=== PATIENT | male | born 1990 | race African-American/Black ===

== ENCOUNTER 2020-03-26 09:40 | Observation (INO) | payer OTHER ==
[2020-03-26 10:09] VITALS: BMI 22.5
--- NOTE | 2020-03-26 10:12 | PDOC ---
Documentation entered by Flash Renee SCRIBE, acting as scribe for Marcelino Eckert MD. Marcelino Ecekrt MD: This documentation has been prepared by the Thelma roberts Xhesika, SCRIBE, under my direction and personally reviewed by me in its entirety. I confirm that the documentation accurately reflects all work, treatment, procedures, and medical decision making performed by me. History of Present Illness - General Chief Complaint: Seizure Stated Complaint: SEIZURES Time Seen by Provider: 03/26/20 09:55 History Source: Patient Exam Limitations: No Limitations - History of Present Illness Initial Comments: 03/26/20 09:55 The patient is a 29 year old male with a significant PMH of chronic headaches and COVID infection (october 2019) who presents to the emergency department for L sided posterior head pain and headache s/p seizure yesterday. Per girlfriend at bedside, the pt had a seizure yesterday at 2:30PM witnessed by the girlfriend. G irlfriend states the pt fell on the ground and hit his head on the floor. Pt was then taken to [facility] ED, where they did an EKG, was told that "he had an episode where his heart stopped" and was dxc home. Girlfriend states, the pt has been stuttering, having blurry vision and was jerking in his sleep last night, prompting the arrival to the ED. Pt states he smokes marijuana, but did not smoke yesterday prior to his seizure. Girlfriend states the pt has been sleepy since he woke up, unlike yesterday. Allergies: NKDA Past History - Medical History Allergies/Adverse Reactions: Allergies Allergy/AdvReac Type Severity Reaction Status Date / Time No Known Allergies Allergy Verified 03/26/20 10:09 Home Medications: Ambulatory Orders NK [No Known Home Medication] 03/26/20 Review of Systems - Review of Systems Able to Perform ROS?: Yes Comments:: 03/26/20 10:22 CONSTITUTIONAL: No fever, no chills, no fatigue. +L sided posterior head pain. EYES: +Blurry vision ENT: No ear pain, no sore throat CARDIOVASCULAR: No chest pain, no palpitations RESPIRATORY: No cough, no SOB GI: No abdominal pain, no nausea, no vomiting, no constipation, no diarrhea GENITOURINARY: No dysuria, no frequency, no hematuria MUSKULOSKELETAL: No backpain, no joint pain, no myalgias SKIN: No rash NEURO: + headache. +stuttering. *Physical Exam - Physical Exam 03/26/20 11:29 EXAMINATION CONSTITUTIONAL: Somnolent, easily arousable, follows commands, well-nourished,; in no apparent distress HEAD: Normocephalic; atraumatic EYES: PERRL; EOM intact; No meningismus; conjunctiva pink; ENMT: External appears normal; normal oropharynx NECK: Supple; non-tender; no cervical lymphadenopathy; No evidence of meningismus CARD: Normal S1, S2; no murmurs, rubs, or gallops RESP: Normal chest excursion with respiration; breath sounds clear and equal bilaterally; no wheezes, rhonchi, or rales ABD: Soft, non-distended; non-tender; no palpable organomegaly, no palpable hernias EXT: Normal ROM in all four extremities; non-tender to palpation; distal pulses intact SKIN: Warm, dry, no rash NEURO: Patient is awake, alert, oriented x3; cranial nerves II through XII are grossly intact; motor is five 5 x 4; no pronation drift; patient is noted to be stuttering; ED Treatment Course - LABORATORY CBC & Chemistry Diagram: 03/26/20 09:45 03/26/20 09:45 Medical Decision Making - Medical Decision Making 03/26/20 11:32 29-year-old male presents to the ER with stuttering, blurry vision, and somnolence after a witnessed, likely seizure like activity 18 hours previously for which she was evaluated at [facility]. As per [facility] ER attending, patient refused CT of head and insisted on leaving the hospital. In the ER, patient was noted to be somnolent, following commands, stuttering without focal neuro deficits. CT of head shows no evidence of acute intracranial pathology. CBC/CMP/urine toxicology screen are negative. Grace mijares's girlfriend endorses that she noticed twitching-like movements during sleep which I suspect may have been related to the patient's seizure like activity earlier in the day. I suspect status epilepticus with current symptoms being consistent with a postictal state. Will admit patient for neurological evaluation and an MRI. 03/26/20 11:40 Patient appears more awake and alert, follows commands. Patient stuttering has not improved. Patient is insisting on leaving the hospital. I have advised them that his condition requires admission and close observation. 03/26/20 12:[address] Vicente of neurology. He recommends MRI and EEG. Patient is agreed to stay for the time being. Will admit to med/surge with seizure precautions. 03/26/20 12:24 Patient's EKG is interpreted by the computer as showing AMI in the inferior leads. That is an incorrect interpretation. J-point is likely. Patient's troponin is negative. I discussed the case with the physician who evaluated the patient at [facility] 24 hours previously who also noted similar findings. I suspect normal variant. Discharge - Discharge Information Problems reviewed: Yes Clinical Impression/Diagnosis: Seizure Altered mental state Qualifiers: Altered mental status type: unspecified Qualified Code(s): R41.82 - Altered mental status, unspecified Condition: Fair - Admission Yes - Follow up/Referral - Patient Discharge Instructions - Post Discharge Activity
[2020-03-26 10:30] LABS: BASO % 0.4 % (0-2.0); EOS % 0.4 % (0-4.5); HEMATOCRIT 46.2 % (35.4-49); HEMOGLOBIN 15.1 GM/dL (11.7-16.9); LYMPH % 21.5 % (8-40); MCH 28.5 pg (25.7-33.7); MCHC 32.8 g/dl (32.0-35.9); MEAN CELL VOLUME 87.1 fl (80-96); MEAN PLT VOLUME 8.6 fl (7.5-11.1); MONO % 7.6 % (3.8-10.2); NEUT % 70.1 % (42.8-82.8); PLATELET COUNT 247 K/MM3 (134-434); WHITE BLOOD COUNT 5.9 K/mm3 (4.0-10.0)
[2020-03-26 10:42] LABS: COCAINE, UR NEGATIVE ng/ml (CUTOFF=300); METHADONE, UR NEGATIVE ng/ml (CUTOFF=300); OPIATES, URI NEGATIVE ng/ml (CUTOFF=300); PHENCYCLIDINE,URINE NEGATIVE ng/ml (CUTOFF=25); URINE AMPHETAMINES NEGATIVE ng/ml (CUTOFF=500); URINE BARBITURATES NEGATIVE ng/ml (CUTOFF=200); URINE BENZODIAZEPINES NEGATIVE ng/ml (CUTOFF=200)
[2020-03-26 11:06] LABS: ALBUMIN 4.2 g/dl (3.4-5.0); ANION GAP 9 MMOL/L (8-16); BILIRUBIN,TOTAL 0.8 mg/dL (0.2-1); BLOOD UREA NITROGEN 9.9 mg/dL (7-18); CALCIUM 9.4 mg/dL (8.5-10.1); CHLORIDE 102 mmol/L (98-107); CO2 27 mmol/L (21-32); CREATININE 1.2 mg/dL (0.55-1.3); GLUCOSE,RANDOM 95 mg/dL (74-106); SGOT/AST 17 U/L (15-37); SGPT/ALT 19 U/L (13-61); SODIUM 138 mmol/L (136-145)
[2020-03-26] MEDS ORDERED: ACETAMINOPHEN 1000 MG/100 ML VIAL (NON FORMULARY) IVPB ONE (11:07)
[2020-03-26] MEDS ORDERED: ACETAMINOPHEN INJECTION 100 ML IVPB ONE (11:14)
[2020-03-26 11:32] LABS: ALK PHOS 85 U/L (45-117)
--- NOTE | 2020-03-26 12:49 | EKG ---
Test Reason : Blood Pressure : / mmHG Vent. Rate : 055 BPM Atrial Rate : 055 BPM P-R Int : 194 ms QRS Dur : 082 ms QT Int : 418 ms P-R-T Axes : 054 080 071 degrees QTc Int : 399 ms POOR DATA QUALITY, INTERPRETATION MAY BE ADVERSELY AFFECTED SINUS BRADYCARDIA POSSIBLE LEFT ATRIAL ENLARGEMENT ST ELEVATION CONSIDER INFEROLATERAL INJURY OR ACUTE INFARCT ACUTE OK / STEMI ABNORMAL ECG NO PREVIOUS ECGS AVAILABLE Confirmed by Cody Dumont MD ([id number]) on 03/26/2020 12:49:50 PM Referred By: Confirmed By:Cody Dumont MD
--- NOTE | 2020-03-26 13:42 | PN ---
Teaching Attending Note Name of Resident: Sanya Cunningham ATTENDING PHYSICIAN STATEMENT I saw and evaluated the patient. I reviewed the resident's note and discussed the case with the resident. I agree with the resident's findings and plan as documented. SUBJECTIVE: 29 year old male, iwth history of chronic headaches and COVID 19 infection () from which he recovered, who presents to the ED with complaints of feeling unwell. Apparently patient suddenly complained of chest pains yesterday and fell to the ground and noted to have seizure like movement of the body, roughly 2 mins. EMS called and he was brought to [facility]. He was evaluated and then sent home. Since then has been feeling unwell, and last night, girlfriend noted that he was having jerking movements of the body while asleep. Patient reports he has no recollection of the seizure episode that led him to [facility]. 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 Family History: Unable to obtain (patient is somnolent and unable to participate with history) ASSESSMENT AND PLAN: 1. seizure episode, ?etiology - drug screen, alcohol and tylenol level - assess for infection - hydrate - seizure precaution - CT scan of the head - neurology consultation - EKG shows changes in ST segment. However, no change when compared to previous EKG from [facility] yesterday. Serial troponins and telemetry monitoring. - EEG 2. Mild bradycardia - telemetry monitoring - check electrolytes 3. DVT prophylaxis DW Dr Nima Cunningham. Agree with history, exam, plans of care
--- NOTE | 2020-03-26 15:08 | HP ---
CHIEF COMPLAINT: twitching while asleep and stuttering PCP: none HISTORY OF PRESENT ILLNESS: 29M w/ pmh of chronic headaches, chronic MJ usage, and COVID infection(2-3 weeks of fever, cough, trouble smelling/tasting; October 2019) presenting to [facility] on the behest of his girlfriend for concern of twitching while asleep last night, and persistent stuttering. Pt complains of persist mild headache this morning which has subsequently resolved in the ED. Day before admission is notable for seizure/seizure-like episode(unresponsive, all-over twitching, lasting ~2-3mins) occurring in the afternoon as pt was walking to the elevator lobby of his GF's apt building. Denies having any symptoms of dizziness, tingling, vision changes prior to seizure. Found himself in [facility], feeling well enough to refuse CT Head and was discharged shortly after. Denies have urinary/fecal incontinence as his clothes were unsoiled. His GF informed him that he was down on the ground, twitching. Pt has been having chronic headaches, for years, occurring as frequently as 1-2x a week. His symptoms quickly resolve within a hour of taking OTC Excedrin. States that he has had blurred vision but attributes it to the fact that he leaves his contacts in place for multiple days(last removed 3d prior), sleeping with them on. Feels stressed at work([employer] in [employer] Unit). Has been having chronic irregular sleep. Every other night, will sleep 3hs. History supplemented by GF, at bedside. ER course was notable for: (1) Afeb, HR 62, 133/82 (2) somonlence, stuttering, blurry vision (3) UDS neg, EtOH <3 (4) CTH neg (5) Tomeka spoke to [facility] ED attending; pt had refused CTH and wanted discharge. EKG was noted to have AMI of inferior leads, probably J-point (6) [facility]: rec MRI and EEG Recent Travel: denies PAST MEDICAL HISTORY: as above PAST SURGICAL HISTORY: none Social History: Smoking: MJ(1-2 bowls daily), last usage was Tuesday Alcohol: 3drinks/weekly Drugs: denies Allergies No Known Allergies Allergy (Verified 03/26/20 10:09) HOME MEDICATIONS: Home Medications Medication Instructions Recorded NK [No Known Home Medication] 03/26/20 REVIEW OF SYSTEMS CONSTITUTIONAL: Absent: fever, chills, diaphoresis, generalized weakness, malaise, loss of appetite, weight change HEENT: Absent: rhinorrhea, nasal congestion, throat pain, throat swelling, difficulty swallowing, mouth swelling, ear pain, eye pain, visual changes CARDIOVASCULAR: Absent: chest pain, syncope, palpitations, irregular heart rate, lightheadedness, peripheral edema RESPIRATORY: Absent: cough, shortness of breath, dyspnea with exertion, orthopnea, wheezing, stridor, hemoptysis GASTROINTESTINAL: Absent: abdominal pain, abdominal distension, nausea, vomiting, diarrhea, constipation, melena, hematochezia GENITOURINARY: Absent: dysuria, frequency, urgency, hesitancy, hematuria, flank pain, genital pain MUSCULOSKELETAL: Absent: myalgia, arthralgia, joint swelling, back pain, neck pain SKIN: Absent: rash, itching, pallor HEMATOLOGIC/IMMUNOLOGIC: Absent: easy bleeding, easy bruising, lymphadenopathy, frequent infections ENDOCRINE: Absent: unexplained weight gain, unexplained weight loss, heat intolerance, cold intolerance 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 PHYSICAL EXAMINATION Vital Signs - 24 hr 03/26/20 03/26/20 09:55 10:40 Temperature 98.2 F Pulse Rate 62 Respiratory 16 Rate Blood Pressure 133/82 O2 Sat by Pulse 100 99 Oximetry (%) GENERAL: No acute distress. Lethargic appearing HEAD: Normal with no signs of trauma. EYES: extraocular movements intact, sclera anicteric, conjunctiva clear. No lid lag. Contact lenses in place EARS, NOSE, THROAT: Ears normal, nares patent, oropharynx clear without exudates. Moist mucous membranes. NECK: Normal range of motion, supple without lymphadenopathy, JVD, or masses. LUNGS: Breath sounds equal, clear to auscultation bilaterally. No wheezes, and no crackles. No accessory muscle use. HEART: Regular rate and rhythm, normal S1 and S2 without murmur, rub or gallop. ABDOMEN: Soft, nontender, not distended, normoactive bowel sounds, no guarding, no rebound, no masses. MUSCULOSKELETAL: Normal range of motion at all joints. No bony deformities or tenderness. No CVA tenderness. UPPER EXTREMITIES: 2+ pulses, warm, well-perfused. No cyanosis. No clubbing. No peripheral edema. LOWER EXTREMITIES: 2+ pulses, warm, well-perfused. No calf tenderness. No peripheral edema. NEUROLOGICAL: Cranial nerves II-XII intact. Stuttering speech. 5/5 muscle strength SKIN: Warm, dry, normal turgor, no rashes or lesions noted, normal capillary refill. Laboratory Results - last 24 hr 03/26/20 03/26/20 03/26/20 09:00 09:45 09:45 WBC 5.9 RBC 5.30 Hgb 15.1 Hct 46.2 MCV 87.1 MCH 28.5 MCHC 32.8 RDW 14.0 Plt Count 247 MPV 8.6 Absolute Neuts (auto) 4.1 Neutrophils % 70.1 Lymphocytes % 21.5 Monocytes % 7.6 Eosinophils % 0.4 Basophils % 0.4 Nucleated RBC % 0 Sodium 138 Potassium 4.0 Chloride 102 Carbon Dioxide 27 Anion Gap 9 BUN 9.9 Creatinine 1.2 Est GFR (CKD-EPI)AfAm 92.83 Est GFR (CKD-EPI)NonAf 80.09 POC Glucometer Random Glucose 95 Calcium 9.4 Total Bilirubin 0.8 AST 17 ALT 19 Alkaline Phosphatase 85 Creatine Kinase 172 Creatine Kinase Index No Result Required. CK-MB (CK-2) < 1.0 Troponin I < 0.02 Total Protein 8.0 Albumin 4.2 Opiates Screen Negative Methadone Screen Negative Barbiturate Screen Negative Phencyclidine Screen Negative Ur Amphetamines Screen Negative MDMA (Ecstasy) Screen Negative Benzodiazepines Screen Negative Cocaine Screen Negative U Marijuana (THC) Screen Negative 03/26/20 09:54 WBC RBC Hgb Hct MCV MCH MCHC RDW Plt Count MPV Absolute Neuts (auto) Neutrophils % Lymphocytes % Monocytes % Eosinophils % Basophils % Nucleated RBC % Sodium Potassium Chloride Carbon Dioxide Anion Gap BUN Creatinine Est GFR (CKD-EPI)AfAm Est GFR (CKD-EPI)NonAf POC Glucometer 107 Random Glucose Calcium Total Bilirubin AST ALT Alkaline Phosphatase Creatine Kinase Creatine Kinase Index CK-MB (CK-2) Troponin I Total Protein Albumin Opiates Screen Methadone Screen Barbiturate Screen Phencyclidine Screen Ur Amphetamines Screen MDMA (Ecstasy) Screen Benzodiazepines Screen Cocaine Screen U Marijuana (THC) Screen ASSESSMENT/PLAN: 29M w/ pmh of chronic headaches, chronic sleep issues, chronic MJ usage, and COVID infection(2-3 weeks of fever, cough, trouble smelling/tasting; October 2019) presenting to [facility] on the behest of his girlfriend for concern of twitching while asleep last night, and persistent stuttering. Had reported seizure/seizure-like activity the day [employer]. Pt admitted for seizure workup. #possible new-onset seizure --vs migraine, vs sleep disorder > CTH neg > MRI brain --pending > UDS neg, EtOH <3 > acetaminophen lvl --pending - telemonitor - neurochecks q1h - Neuro consult([facility]): --rec MRI and EEG --further recs pending #EKG reading as [place] of inferior leads --unchanged EKG as discussed between Tomeka and Abdon STOKES Attending > troponin neg FEN - no mIVF - regular diet DVT PPX - lovenox Family Medical History Family History: Denies (Father and mother are healthy. Do not take any meds) Visit type - Emergency Visit Emergency Visit: Yes ED Registration Date: 03/26/20 Care time: The patient presented to the Emergency Department on the above date and was hospitalized for further evaluation of their emergent condition. - New Patient This patient is new to me today: Yes Date on this admission: 03/26/20 - Critical Care Critical Care patient: No ATTENDING PHYSICIAN STATEMENT I saw and evaluated the patient. I reviewed the resident's note and discussed the case with the resident. I agree with the resident's findings and plan as documented. SUBJECTIVE: OBJECTIVE: ASSESSMENT AND PLAN:
--- NOTE | 2020-03-26 17:41 | CON.NEURO ---
Consult Consult Specialty:: [facility] Reason for Consultation:: COOK and sz - History of Present Illness History of Present Illness: 29-year-old right-handed man with history of recent Covid infection comes to the hospital with chief complaint of shivering stuttering and difficulty with seizure control. According to the patient and is a poor historian he had a seizure-like activity presented to [facility] patient refused CAT scan of the head patient signed out AMA. Patient was noted by his girlfriend to be shaking at night. No report of any recent travel. Patient with a chronic headache patient is a chronic marijuana user there is no family history of seizu re the emergency room patient was stable patient wants to go home initially and then the agreed to stay MRI of the brain was done I reviewed the images. - History Source History Provided By: Patient Limitations to Obtaining History: No Limitations - Smoking History Smoking history: Never smoked Have you smoked in the past 12 months: No Home Medications - Allergies Allergies/Adverse Reactions: Allergies Allergy/AdvReac Type Severity Reaction Status Date / Time No Known Allergies Allergy Verified 03/26/20 10:09 - Home Medications Home Medications: Ambulatory Orders NK [No Known Home Medication] 03/26/20 Family Medical History Family History: Unremarkable Review of Systems - Review of Systems Neurological: reports: Dizziness, Headache, Incoordination, Numbness Physical Exam-Neuro Vital Signs: Vital Signs Temperature 97.6 F 03/26/20 14:46 Pulse Rate 55 L 03/26/20 14:46 Respiratory Rate 18 03/26/20 14:46 Blood Pressure 113/76 03/26/20 14:46 O2 Sat by Pulse Oximetry (%) 99 03/26/20 14:46 Constitutional: Yes: Well Nourished Neck: Yes: WNL Cardiovascular: Yes: WNL Respiratory: Yes: WNL Labs: CBC, BMP 03/26/20 09:45 03/26/20 09:45 - Neuro Exam Level Of Consciousness: Yes: Oriented to Person, Oriented to Place, Oriented to Time Eyes: Yes: PERRLA Speech: WNL Dominant Hand: Right Cranial Nerves II-XII Intact: Yes Gag: Present DTR's: 1+ Left Bicep, 1+ Right Bicep, 1+ Left Tricep, 1+ Right Tricep Response to light touch: Normal Response to pain prick: Normal Response to temperature: Normal Motor Strength: 3/5: Left Arm, Right Arm, Left Leg, Right Leg Gait: Deferred Imaging - Results Cat Scan: Image Reviewed Problem List - Problems (1) Altered mental state Code(s): R41.82 - ALTERED MENTAL STATUS, UNSPECIFIED Qualifiers: Altered mental status type: unspecified Qualified Code(s): R41.82 - Altered mental status, unspecified (2) Seizure Code(s): R56.9 - UNSPECIFIED CONVULSIONS Assessment/Plan seizure is not very common neurological complication of Covid 19 headache and dizziness are the most common symptoms. 1. Neuro checks every 1 hour. 2. Seizure precautions. 3. Unfortunately due to the presentation with more than one seizure TO start him on a seizure medication. 4. Zonogram 100 mg twice daily. 5. Headache diary. 6. Fioricet when necessary headache. 7. Follow-up to report of the MRI. 8. EEG can be done as an outpatient. Thank you very much for allowing me to be participation neurological care. Hugo Wisdom M.D.
[2020-03-27 05:36] VITALS: TEMP 98.5
[2020-03-27 06:12] VITALS: BP 114/70; PULSE 54
[2020-03-27 07:28] LABS: HEMATOCRIT 43.4 % (35.4-49); HEMOGLOBIN 14.1 GM/dL (11.7-16.9); MCH 28.4 pg (25.7-33.7); MCHC 32.6 g/dl (32.0-35.9); MEAN PLT VOLUME 8.6 fl (7.5-11.1); PLATELET COUNT 223 K/MM3 (134-434); RBC 4.99 M/mm3 (4.00-5.60); RDW 13.7 % (11.9-15.9); WHITE BLOOD COUNT 4.1 K/mm3 (4.0-10.0)
[2020-03-27 07:54] LABS: ANION GAP 8 MMOL/L (8-16); CALCIUM 8.7 mg/dL (8.5-10.1); CHLORIDE 105 mmol/L (98-107); CO2 27 mmol/L (21-32); GLUCOSE,RANDOM 95 mg/dL (74-106); POTASSIUM 3.9 mmol/L (3.5-5.1); SODIUM 140 mmol/L (136-145)
[2020-03-27 08:08] LABS: MAGNESIUM 2.2 mg/dL (1.8-2.4); PHOSPHOROUS 3.4 mg/dL (2.5-4.9)
[2020-03-27] MEDS ORDERED: ZONISAMIDE 100 MG CAPSULE PO SCH (10:00)
[2020-03-27] MEDS ORDERED: ENOXAPARIN NA (PORCINE) 40 MG/0.4 ML DISP.SYRIN SQ SCH (10:00)
--- NOTE | 2020-03-27 11:34 | DS ---
Physical Exam: SUBJECTIVE: Patient seen and examined this morning, said he is feeling his normal self and wants to leave. He denied blurry vision or loss of vision in any eckert, denied SOB, palpitations, CP, dizziness, headaches, vertigo. OBJECTIVE: Vital Signs Period Temp Pulse Resp BP Sys/Dutton Pulse Ox Last 24 Hr 97.6 F-98.5 F 52-63 18-18 110-142/60-76 98-99 PHYSICAL EXAM GENERAL: AAM, thin to cachectic body habitus, fully AAO, no acute distress but visibly in a bad mood HEAD: Normal with no signs of trauma EYES: PERRL, direct and consensual pupillary reflexes intact, extraocular movements intact, vision in all eckert, conjunctiva clear and moist appearing ENT: mouth and tongue are dry NECK: full range of motion LUNGS: CTAB, no wheezing appreciated HEART: sounded occasionally irregular, S1 muffled, S2 strong and loud, no murmurs appreciated ABDOMEN: Soft, nontender, nondistended, active bowel sounds EXTREMITIES: radial and dorsalis pedis pulses easily palpable, thin to cachectic, no edema appreciated NEUROLOGICAL: Cranial nerves II through XII grossly intact: normal speech, symmetrical facial movements, full strength and sensation intact bilaterally PSYCH: good mood, affect not congruent with stated mood - irritated/angry. SKIN: Warm to touch, no rashes or lesions noted LABS Laboratory Results - last 24 hr 03/26/20 03/26/20 03/27/20 09:45 12:16 06:38 WBC 4.1 RBC 4.99 Hgb 14.1 Hct 43.4 MCV 87.0 MCH 28.4 MCHC 32.6 RDW 13.7 Plt Count 223 MPV 8.6 Sodium 138 Potassium 4.0 Chloride 102 Carbon Dioxide 27 Anion Gap 9 BUN 9.9 Creatinine 1.2 Est GFR (CKD-EPI)AfAm 92.83 Est GFR (CKD-EPI)NonAf 80.09 Random Glucose 95 Calcium 9.4 Phosphorus Magnesium Total Bilirubin 0.8 AST 17 ALT 19 Alkaline Phosphatase 85 Creatine Kinase 172 Creatine Kinase Index No Result Required. CK-MB (CK-2) < 1.0 Troponin I < 0.02 Total Protein 8.0 Albumin 4.2 TSH Alcohol, Quantitative < 3 COVID-19 ([facility]) Not detected 03/27/20 06:38 WBC RBC Hgb Hct MCV MCH MCHC RDW Plt Count MPV Sodium 140 Potassium 3.9 Chloride 105 Carbon Dioxide 27 Anion Gap 8 BUN 10.0 Creatinine 1.0 Est GFR (CKD-EPI)AfAm 115.72 Est GFR (CKD-EPI)NonAf 99.85 Random Glucose 95 Calcium 8.7 Phosphorus 3.4 Magnesium 2.2 Total Bilirubin AST ALT Alkaline Phosphatase Creatine Kinase Creatine Kinase Index CK-MB (CK-2) Troponin I Total Protein Albumin TSH 0.38 Alcohol, Quantitative COVID-19 ([facility]PIDIO) HOSPITAL COURSE: 29yo M with PMHx of chronic headaches, marihuana use, chronic sleep disturbances, and COVID 10/2019 who presented per girlfriend request for twit celina in his sleep, stuttering, and a seizure-like episode, and was admitted for seizure workup. EKG (poor quality) was abnormal showing sinus bradycardia, ST elevation in inferolateral leads. Other imaging (CXR, head CT, brain MRI) labs were unremarkable (CBC, BMP, LFTs, CK, CKMB, troponin, urine tox, and COVID). Plan was to repeat EKG and trop but patient decided to leave AMA. Advised patient to follow up outpatient with neurology and cardiology, and strongly advised not to operate a vehicle. Date of Admission:03/27/20 Date of Discharge: 03/27/20 Minutes to complete discharge: 37 Discharge Summary Problems reviewed: Yes Reason For Visit: SEIZURES,ALTERRED MENTAL STATUS Condition: Stable - Instructions Diet, Activity, Other Instructions: You were admitted to the hospital after you passed out. We believe this may have been a seizure. Your CT and MRI scans of the head were normal, and a neurologist saw you, who recommended you be started on anti seizure medication and follow up with him out patient for further testing including an EEG. We did find some unusual findings in your EKG, which is not an emergency but does require further work-up, so we have included a referral to a public service representative as well. Medications: Please take Zonegran 100mg by mouth twice a day (once in the morning and once in the evening) Follow-up: Please follow up with your PCP in [address] A referral for Dr. Cadet has been provided if you do not have a PCP. Please follow up with Dr. Doss as soon as possible. It is very important that you do follow-up for further workup. Please follow-up with Dr. Poon, the public service representative for further workup within 1 week. more testes fo your heart needs to be done Recommendations: Please DO NOT DRIVE OR OPERATE HEAVY MACHINERY UNTIL YOU SEE A NEUROLOGIST Please return to the ER if you have any severe headaches, fevers, chills, diarrhea, vomiting, or any severe symtpoms. Referrals: Jorden Cadet MD [Staff Physician] - 1 Week Richard Poon MD [Staff Physician] - 1 Week Hugo Wisdom MD [Staff Physician] - Disposition: AGAINST MEDICAL ADVICE - Home Medications Comprehensive Discharge Medication List: Ambulatory Orders Zonisamide [Zonegran -] 100 mg PO BID 30 Days #60 capsule 03/27/20 This patient is new to me today: Yes Date on this admission: 03/27/20 Emergency Visit: Yes ED Registration Date: 03/27/20 Care time: The patient presented to the Emergency Department on the above date and was hospitalized for further evaluation of their emergent condition. Critical Care patient: No - Discharge Referral Referred to [facility] No ATTENDING PHYSICIAN STATEMENT I saw and evaluated the patient. I reviewed the resident's note and discussed the case with the resident. I agree with the resident's findings and plan as documented. SUBJECTIVE: OBJECTIVE: ASSESSMENT AND PLAN:
--- NOTE | 2020-03-27 13:36 | PN ---
Teaching Attending Note Name of Resident: Gladis Gomez ATTENDING PHYSICIAN STATEMENT I saw and evaluated the patient. I reviewed the resident's note and discussed the case with the resident. I agree with the resident's findings and plan as documented. SUBJECTIVE: seen at 9 am . complained of no pain, SOB, or fever . he did nto remember what happened, has a cut on his lower lip but no pain in tongue . No h/o seizure/brain tumors, neurological disorder. no family h/o CAD, or sudden . No cp or SORIANO, or SOB. denies drug use except for Marijuana . occasional alcohol use OBJECTIVE: NAD, awake, alert, flat affect CV: RRR, no MRG Lungs: CTAB Neuro : EOMI, round pupils, no facial droop, tongue at mid line. strength 5/5 in upper and lower extremities proximally and distally. sensatio to light touch . 1+ Knee jerk and biceps b/l . ASSESSMENT AND PLAN: 29 y/o man with h/o COVID in 10/25 , chronic COOK , and Marijuana use who presented with shaking episodes x 2 . 1- Possible seizures : MRI and CT reviewed. no pathology. etiology is not known. - patient refuses to use AED . he understands having a seizure while driving, or in other certain situation can be fatal . He also refuses any other investigations - he was advised to f.u with neuro 2- EKG changes. EKG reviewed. base line artifat is seen but sinus rhythm, possibel J point elevation in V4,5,6. No cp . first trop is neg - He was offered a repeat EKG and trop. but he refused. he understands missing a cardiac pathology like IL or arrhythmias can be dangerous dispo : He wanted to leave AMA. he understands above risk of seizures and cardiac complications if not diagnoses and treated. he was referred to [facility]. he was advised No driving until cleared by neuro
--- NOTE | 2020-03-27 16:57 | EKG ---
Test Reason : Blood Pressure : / mmHG Vent. Rate : 055 BPM Atrial Rate : 055 BPM P-R Int : 184 ms QRS Dur : 084 ms QT Int : 432 ms P-R-T Axes : 060 083 060 degrees QTc Int : 413 ms SINUS BRADYCARDIA POSSIBLE LEFT ATRIAL ENLARGEMENT LOW VOLTAGE QRS ST ELEVATION CONSIDER INFEROLATERAL INJURY OR ACUTE INFARCT ACUTE WA / STEMI ABNORMAL ECG WHEN COMPARED WITH ECG OF 26-MAR-2020 10:00, NO SIGNIFICANT CHANGE WAS FOUND Confirmed by [place] ESPARZA MD ([id number]) on 03/27/2020 4:57:14 PM Referred By: Confirmed By:NY ESPARZA MD
== END 2020-03-27 09:30 | disposition left against medical advice (07) ==
LOC: JER 09:40 → JERBED 13:25 → INTOOBSV 13:25 → UNDOADMOB 13:25 → J4W 16:46 → JERBED 16:46 → J4W 03-27 09:24
PROVIDERS: ADMIT Internal Medicine; ATTEND Internal Medicine
PROC: 3E033NZ Introduction of Analgesics, Hypnotics, Sedatives into Peripheral Vein, Percutaneous Approach (ICD-10-PCS; principal; 2020-03-27)
DX: R56.9 Unspecified convulsions (principal); Z86.19 Personal history of other infectious and parasitic diseases; R00.1 Bradycardia, unspecified; G89.29 Other chronic pain
CPT/HCPCS: 36415; 70450-TC; 70551-TC; 71045-TC-FY; 80048; 80053; 80307; 82550; 82553; 82962; 83735; 84100; 84146; 84443; 84484; 85025; 85027; 93005; 93010; 99285-25; G0378; J0131; U0003